=== PATIENT | male | born 1965 | race Caucasian/White ===

== ENCOUNTER → 2018-06-08 08:14 | Outpatient (CLI) | payer OTHER, SELFPAY ==
[2018-06-08 09:02] LABS: Appearance Urine UA CLEAR; Bilirubin Urine UA NEGATIVE (NEGATIVE); Color Urine UA YELLOW; Glucose Urine UA NEGATIVE (Normal); Ketones Urine UA NEGATIVE (NEGATIVE); Leukocyte Esterase Urine UA NEGATIVE (NEGATIVE); Nitrite Urine UA Negative (Negative); Occult Blood Urine UA NEGATIVE (Negative); Protein Urine UA NEGATIVE (Negative); Urobilinogen Urine UA 0.2 E.U./dL (0.2); pH Urine UA 5.5 (4.5-8.0)
[2018-06-08 09:11] LABS: Add Manual Diff / Slide Review NO; Basophils Percent Auto 1.1 % (0-2); Eosinophils Percent Auto 2.2 % (2-4); Hematocrit 44.2 % (41-53); Hemoglobin 15.8 g/dL (13.5-17.5); Lymphocytes Percent Auto 39.6 % (25-40); Mean Corpuscular HGB Conc 35.8 % (30-36); Mean Corpuscular Hemoglobin 34.3 PG (26-34); Monocytes Percent Auto 9.8 % (3-14); Neutrophils Absolute Auto 2600 /uL (3000-5900); Neutrophils Percent Auto 47.3 % (50-75); Platelet Count 118 X10^3/uL (150-400); Red Cell Distribution Width 12.5 % (11.6-14.8); White Blood Cell Count 5.4 X10^3/uL (4.5-11.0)
[2018-06-08 09:31] LABS: Alanine Aminotransferase 82 IU/L (21-72); Albumin 4.5 g/dL (3.5-5.0); Albumin Globulin Ratio 1.6 (1.0-2.8); Alkaline Phosphatase 78 U/L (38-126); Aspartate Aminotransferase 47 IU/L (17-59); BUN Creatinine Ratio 15.6 (6-22); Bilirubin Total 1.5 mg/dL (0.2-1.3); Blood Urea Nitrogen 14 mg/dL (9-20); Calcium 9.3 mg/dL (8.4-10.2); Carbon Dioxide 26 mmol/L (22-32); Chloride 107 mmol/L (98-107); Cholesterol 138 mg/dL (140-199); Estimated Glomerular Filt Rate > 60.0 mL/min (>60); Globulin 2.9 g/dL (1.7-4.1); Glucose 99 mg/dL (70-100); HDL Cholesterol 40 mg/dL (40-60); HEMOLYSIS < 15 (0-50); LDL Cholesterol Calculated 67 mg/dL (<100); Potassium 3.8 mmol/L (3.4-5.1); Sodium 145 mmol/L (137-145); Total Protein 7.4 g/dL (6.3-8.2); Triglycerides 153 mg/dL (35-150)
[2018-06-08 09:58] LABS: Prostate Specific Antigen Scrn 0.525 ng/mL (0.1-4.0)
[2018-06-08 10:18] LABS: Thyroid Stimulating Hormone 2.91 uIU/mL (0.47-4.68)
[2018-06-08 10:38] LABS: Hep C Virus Ab w/Reflex Quant NEGATIVE s/c (NEGATIVE)
== END ==
PROVIDERS: PCP Family Medicine; Visit Provider Family Medicine
DX: Z12.5 Encounter for screening for malignant neoplasm of prostate (principal); Z11.59 Encounter for screening for other viral diseases; Z13.220 Encounter for screening for lipoid disorders; Z51.81 Encounter for therapeutic drug level monitoring; Z13.29 Encounter for screening for other suspected endocrine disorder
CPT/HCPCS: 36415; 80053; 80061; 81003; 84443; 85025; 86803; G0103

== ENCOUNTER → 2018-06-27 13:38 | Outpatient (CLI) | payer OTHER, SELFPAY ==
[2018-06-30 08:45] LABS: Hepatitis A Antibody IgM NONREACTIVE (NONREACTIVE); Hepatitis Acute Panel Interp 0.03 (NONREACTIVE); Hepatitis B Core Antibody IgM NONREACTIVE (NONREACTIVE); Hepatitis B Surface Antigen NONREACTIVE (NONREACTIVE); Hepatitis C Antibody NONREACTIVE
== END ==
PROVIDERS: PCP Family Medicine; Visit Provider Family Medicine
DX: R74.8 Abnormal levels of other serum enzymes (principal)
CPT/HCPCS: 36415; 80074

== ENCOUNTER → 2018-06-28 07:56 | Outpatient (CLI) | payer OTHER, SELFPAY ==
--- NOTE | 2018-06-28 | DI.US.S_ITS ---
PROCEDURE: US ABDOMEN COMPLETE INDICATIONS: ELEVATED LIVER ENZYMES TECHNIQUE: Real-time scanning was performed of the abdominal and retroperitoneal organs, with image documentation. COMPARISON: None. FINDINGS: Liver: Liver is diffusely increased in echogenicity. No focal hepatic abnormalities identified. Normal hepatic size. Gallbladder: No gallstones identified. Normal gallbladder wall. No pericholecystic fluid. Negative sonographic Pfeiffer sign. Biliary ducts: Intrahepatic bile ducts are non-dilated. Extrahepatic bile duct caliber measures 5.2 mm. Normal is 6-7 mm or less in diameter, or 10 mm or less post-cholecystectomy. Pancreas: Not visualized Spleen: Spleen is normal in size and homogeneous in echotexture. Kidneys: Kidneys are normal in size and echotexture. Right kidney measures 11.2 cm long; left kidney measures 12.0 cm long. No hydronephrosis or nephrolithiasis. No solid masses. Aorta: Visualized aorta is normal in caliber at less than 3 cm. Iliacs: Proximal common iliac arteries are normal in caliber at less than 2.5 cm. IVC: Not well-seen. Miscellaneous: No free abdominal fluid. IMPRESSION: Increased hepatic echogenicity noted possibly related to hepatic steatosis but other sources of hepatocellular disease cannot be excluded. Recommend clinical correlation. Dictated by: Saeid Dean [facility] Interpreted: Nima Mathew MD on 06/28/2018 at 9:08 Approved by: Nima Mathew M.D. on 06/28/2018 at 10:36
== END ==
PROVIDERS: PCP Family Medicine; Visit Provider Family Medicine
DX: R74.8 Abnormal levels of other serum enzymes (principal)
CPT/HCPCS: 76700

== ENCOUNTER → 2019-05-31 16:58 | Outpatient (CLI) | payer OTHER, SELFPAY | PROVIDERS: PCP Family Medicine | DX: Z23 Encounter for immunization (principal) | CPT/HCPCS: 90471; 90686 ==

== ENCOUNTER → 2019-10-27 16:19 | Outpatient (ROUT) | payer OTHER, SELFPAY | PROVIDERS: PCP Family Medicine; Visit Provider Physician Assistant | DX: L03.90 Cellulitis, unspecified (principal) | CPT/HCPCS: 87070; 87075; 87205 ==

== ENCOUNTER → 2020-02-07 12:20 | Outpatient (CLI) | payer OTHER, SELFPAY ==
--- NOTE | 2020-02-07 12:23 | DI.RAD.S_ITS ---
PROCEDURE: XR WRIST LT MIN 3V INDICATIONS: left wrist injury, history of mult surgeries TECHNIQUE: 4 views of the wrist were acquired. COMPARISON: None. FINDINGS: Bones: No fractures or dislocations. No suspicious bony lesions. First CMC and triscaphe joint degeneration. Chronic appearing ossicles seen at the tip of the ulnar styloid presumably from prior remote fracture Soft tissues: No suspicious soft tissue calcifications. IMPRESSION: No fracture. If the patient's symptoms do not improve recommend followup radiographs in 10 days to assess for healing sclerosis/occult injury. Dictated by: Daniel Mckeon M.D. on 02/07/2020 at 13:50 Approved by: Daniel Mckeon M.D. on 02/07/2020 at 13:54
== END ==
PROVIDERS: Referring Provider Nurse Practitioner Family; Visit Provider Nurse Practitioner Family
DX: S69.92XA Unspecified injury of left wrist, hand and finger(s), initial encounter (principal); M18.12 Unilateral primary osteoarthritis of first carpometacarpal joint, left hand; X58.XXXA Exposure to other specified factors, initial encounter; Z98.890 Other specified postprocedural states
CPT/HCPCS: 73110

== ENCOUNTER → 2020-04-28 09:59 | Outpatient (CLI) | payer OTHER, SELFPAY ==
[2020-04-28 11:02] LABS: Add Manual Diff / Slide Review NO; Basophils Absolute Auto 100 /uL (0-100); Eosinophils Absolute Auto 100 /uL (0-450); Hematocrit 45.5 % (41-53); Hemoglobin 15.9 g/dL (13.5-17.5); Lymphocytes Absolute Auto 2400 /uL (1100-4500); Lymphocytes Percent Auto 42.6 % (25-40); Mean Corpuscular HGB Conc 34.8 % (30-36); Mean Corpuscular Hemoglobin 33.7 PG (26-34); Mean Corpuscular Volume 96.8 fL (80-100); Monocytes Absolute Auto 600 /uL (0-900); Monocytes Percent Auto 10.6 % (3-14); Neutrophils Absolute Auto 2500 /uL (1500-7000); Neutrophils Percent Auto 43.8 % (50-75); Platelet Count 121 X10^3/uL (150-400); Red Cell Distribution Width 12.6 % (11.6-14.8); White Blood Cell Count 5.7 X10^3/uL (4.5-11.0)
[2020-04-28 11:15] LABS: BUN Creatinine Ratio 15.7 (6-22); Blood Urea Nitrogen 14 mg/dL (9-20); Calcium 9.3 mg/dL (8.4-10.2); Carbon Dioxide 27 mmol/L (22-32); Chloride 107 mmol/L (98-107); Cholesterol 157 mg/dL (140-199); Estimated Glomerular Filt Rate > 60.0 mL/min (>60); Glucose 97 mg/dL (70-100); HDL Cholesterol 44 mg/dL (40-60); HEMOLYSIS < 15 (0-50); LDL Cholesterol Calculated 84 mg/dL (<100); Potassium 4.3 mmol/L (3.4-5.1); Sodium 140 mmol/L (137-145); Triglycerides 145 mg/dL (35-150)
[2020-04-28 11:44] LABS: Prostate Specific Antigen Scrn 0.587 ng/mL (0.1-4.0)
== END ==
PROVIDERS: PCP Family Medicine; Referring Provider Family Medicine; Visit Provider Family Medicine
DX: Z12.5 Encounter for screening for malignant neoplasm of prostate (principal); Z68.35 Body mass index [BMI] 35.0-35.9, adult
CPT/HCPCS: 36415; 80048; 80061; 85025; G0103

== ENCOUNTER → 2020-10-02 09:00 | Outpatient (CLI) | payer OTHER, SELFPAY ==
[2020-10-02 10:18] LABS: COVID19 -Nasal RAPID Negative (Negative)
== END ==
PROVIDERS: PCP Family Medicine; Visit Provider Surgery
DX: Z01.812 Encounter for preprocedural laboratory examination (principal); Z20.822 Contact with and (suspected) exposure to COVID-19
CPT/HCPCS: 87635; C9803

== ENCOUNTER 2020-10-03 07:24 | Day surgery (SDC) | payer OTHER, SELFPAY ==
--- NOTE | 2020-10-03 | PATH_ITS ---
[facility] Accession Number: [id number] . 01 Material submitted: . PART A: colon - ASCENDING COLON POLYP AT 110CM PART B: body - POLYP AT 45CM PART C: rectum - RECTAL POLYP AT 5CM . 02 Diagnosis: A. Ascending Colon, Polyp at 110 cm, Biopsy: Tubular adenoma. . B. Colon, Polyp at 45 cm, Biopsy: Tubular adenoma. . C. Rectum, Polyp at 5 cm, Biopsy: Hyperplastic polyp. MRV 10/08/2020 1152 Local . 02 Electronically signed: . Shruthi Keys MD, Pathologist NPI- [id number] . 01 Gross description: . Part A: ASCENDING COLON POLYP AT 110CM: Received in formalin are 2 fragment(s) of schmitt, soft tissue measuring 0.1 x 0.1 x 0.1 cm to 0.2 x 0.1 x 0.1 cm submitted entirely in 1 cassette(s) Part B: POLYP AT 45CM: Received in formalin is 1 fragment(s) of schmitt, soft tissue measuring 0.3 x 0.2 x 0.2 cm submitted entirely in 1 cassette(s) Part C: RECTAL POLYP AT 5CM: Received in formalin is 1 fragment(s) of schmitt, soft tissue measuring 0.3 x 0.3 x 0.3 cm submitted entirely in 1 cassette(s) /CHIDI 10/06/2020 1915 Local . 02 Pathologist provided ICD-10: D12.2, D12.6 . 02 CPT . 568047, 873922, [id number] Performed at: [address], [place], [place] [id number] MD Viktor Tuttle MD Phone: [phone] Performed at: 02 [facility] [place] [address] [place] [id number] MD Shruthi Keys MD Phone: [phone]
[2020-10-03] MEDS: SODIUM CHLORIDE 0.9% 1,000 ML 200 ML IV (07:47)
[2020-10-03 07:50] VITALS: BP 136/80; PULSE 64; RESP 16; TEMP 36.2; O2SAT 96; BMI 35.7
--- NOTE | 2020-10-03 08:24 | P.HP_ITS ---
History of Present Illness History of Present Illness Date Patient Seen: 10/03/20 Time Patient Seen: 08:24 [place] [facility] [place]: This is a 54-year-old man who is here for his 2nd ever colonoscopy. His 1st exam 3 years ago was done at [facility], and 2 polyps were found. He was recommended to have a repeat colonoscopy in 3 years. He denies any new symptoms of blood in the stool, melena, unexplained weight loss, unexplained abdominal pain. He denies any family history of colon polyps or colon cancers. He says he is otherwise healthy, denies any heart lung or kidney problems. ROS: Denies any cold symptoms. Thirteen system review is otherwise negative other than as mentioned below and in HPI. PE: GENERAL: Well groomed and cooperative. Appears stated age. Answers questions promptly and appropriately. Vital signs noted. HENT: Normocephalic, atraumatic. Hearing intact. EYES: Conjunctiva pink, sclera white, no periorbital swelling. CARDIOVASCULAR: Regular rate. No pedal edema. RESPIRATORY: Non-tachypneic, breathing comfortably on room air. GASTROINTESTINAL: Abdomen soft and non-distended GENITALURINARY: No flank tenderness. MUSCULOSKELETAL: Equal tone and mass bilaterally. SKIN: Warm, dry, soft, appropriate color for ethnicity. No other lesions, rashes, or wounds. NEURO: Alert and Oriented X 3. No gross sensory deficits, or cognitive issues. PSYCH: Appropriate affect and mood. 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 Grandmother No problems noted. Grandmother Cancer Mother No problems noted. Social History: household members spouse,children Tobacco & Substance use: Tobacco type cigarettes Smoking Status Current every day smoker alcohol intake current alcohol intake frequency 0-2 drinks per day Substance Use Type marijuana Meds Home Medications and Allergies Home Medications Medication Instructions Recorded Confirmed Type ibuprofen [Advil] 200 mg PO Q DAY PRN #0 02/19/11 10/03/20 History multivitamin 1 tab PO DAILY 10/03/20 10/03/20 History psyllium husk [Metamucil] 1.2 - 2.4 g PO DAILY 10/03/20 10/03/20 History Allergies Allergy/AdvReac Type Severity Reaction Status Date / Time codeine [CODEINE] Allergy Unknown Vomiting Verified 10/03/20 07:40 Exam Vital Signs (past 8 hours): - 10/03/20 07:50 Temperature 97.2 F L Pulse Rate 64 Respiratory Rate 16 Blood Pressure 136/80 Pulse Oximetry 96 Oxygen Delivery Method Room Air Assessment & Plan Assessment and plan (1) Personal history of colonic polyps: Status: Acute (2) BMI 35.0-35.9,adult: Status: Acute Assessment & Plan narrative: Risks and benefits of surveillance colonoscopy and possible polypectomy were discussed with the patient including risk of bleeding, perforation, need for additional procedures, risks of anesthesia. The patient desires to proceed with the colonoscopy procedure. COVID-19 COVID-19 status: Negative Result date/Date tested (Pos, Neg/Pending): 10/03/20 Time Spent With Patient Time with patient: 15-24 minutes Quality VTE Deep Vein Thrombosis/Pulmonary Embolism Present on Admission: No
--- NOTE | 2020-10-03 08:26 | P.OP.ENDO_ITS ---
Operative Date/Time/Diagnoses Date of procedure: 10/03/20 Time of procedure: 08:26 Pre-op diagnosis: Personal history of colon polyps Procedure & Clinicians Study performed: Colonoscopy Procedural sedation performed by the endoscopist Polypectomy x3 with Jumbo forceps Same procedure as scheduled: Yes Indications: Personal history of colon polyps, due for surveillance Surgeon: Macarena Warner Procedure Notes SCOAP/Timeout: Performed Procedure in detail: The patient was brought to the room and placed in left lateral decubitus position with all bony prominences padded. A time-out was performed and then the patient was given procedural sedation starting with 6 mg of Versed and 100 mcg of fentanyl. Vitals were monitored throughout the procedure and remained stable. Once adequately sedated, the procedure was begun. A rectal exam was performed revealing no abnormalities. The colonoscope was then introduced to the rectum and advanced to the cecum in the usual fashion.]The cecum was identified by the appendiceal orifice, the mucosal tri-f old, and the ileocecal valve. The scope was then retracted while rotating side to side and examining each mucosal fold. Three polyps were found less than 1 cm, an adenomatous appearing. Each was removed with Jumbo forceps. One was found at 110 cm in the ascending colon, 1 was found at 45 cm, and 1 was found at 5 cm in the rectum. They were [ At the conclusion of the procedure retroflexion was performed andsmall grade 1-2 internal hemorrhoids without stigmata of bleeding were seen]. The scope was then withdrawn from the rectum the procedure was concluded. The patient tolerated the procedure well and was transferred to the PACU in stable condition. Scope withdrawal time: 11 Sedation minutes: 19 Findings: polyp (Three polyps) Specimen(s): other (Three polyps) Complications: none Post-procedure Recommendations: Colonscopy in 3 years (Due to 3 new polyps since prior colonoscopy) Plan for aftercare: Will send biopsy results in the mail Follow up: as needed Disposition: PACU
[2020-10-03] MEDS: fentaNYL 250 MCG/5 ML INJ IV (08:31)
[2020-10-03] MEDS: MIDAZOLAM 5 MG/5 ML VIAL IV (08:31)
[2020-10-03 08:53] VITALS: BP 121/74; PULSE 76; RESP 12; TEMP 36.4; O2SAT 96
[2020-10-03 08:58] VITALS: BP 121/84; PULSE 67; RESP 12; O2SAT 95
[2020-10-03 09:03] VITALS: BP 115/82; PULSE 68; RESP 15; TEMP 36.9; O2SAT 94
[2020-10-03 09:20] VITALS: BP 127/73; PULSE 77; RESP 16; TEMP 36.7; O2SAT 95
== END 2020-10-03 09:28 | disposition home or self-care (01) ==
PROVIDERS: PCP Family Medicine; Referring Provider Family Medicine; Visit Provider Surgery
PROC: 0DJD8ZZ Inspection of Lower Intestinal Tract, Via Natural or Artificial Opening Endoscopic (ICD-10-PCS; CPT 45378; principal; 2020-10-03 08:30)
DX: Z12.11 Encounter for screening for malignant neoplasm of colon (principal); Z86.010 Personal history of colon polyps; F17.210 Nicotine dependence, cigarettes, uncomplicated; D12.2 Benign neoplasm of ascending colon; D12.6 Benign neoplasm of colon, unspecified
CPT/HCPCS: 45380; 99152; J2250; J3010

== ENCOUNTER → 2021-01-23 07:54 | Outpatient (CLI) | payer OTHER, SELFPAY ==
[2021-01-23 08:35] LABS: Add Manual Diff / Slide Review NO; Basophils Absolute Auto 100 /uL (0-100); Basophils Percent Auto 1.1 % (0-2); Eosinophils Absolute Auto 100 /uL (0-450); Eosinophils Percent Auto 1.7 % (2-4); Hematocrit 43.7 % (41-53); Hemoglobin 15.5 g/dL (13.5-17.5); Lymphocytes Absolute Auto 2300 /uL (1100-4500); Lymphocytes Percent Auto 38.5 % (25-40); Mean Corpuscular HGB Conc 35.5 % (30-36); Mean Corpuscular Hemoglobin 34.1 PG (26-34); Mean Corpuscular Volume 95.9 fL (80-100); Monocytes Absolute Auto 600 /uL (0-900); Monocytes Percent Auto 10.8 % (3-14); Neutrophils Absolute Auto 2800 /uL (1500-7000); Neutrophils Percent Auto 47.9 % (50-75); Platelet Count 122 X10^3/uL (150-400); Red Blood Cell Count 4.56 X10^6/uL (4.5-5.9); Red Cell Distribution Width 12.5 % (11.6-14.8); White Blood Cell Count 5.9 X10^3/uL (4.5-11.0)
[2021-01-23 08:40] LABS: Hemoglobin A1C% w Est Avg Glu 5.2 % (4.0-6.0)
[2021-01-23 09:05] LABS: Alanine Aminotransferase 75 IU/L (<50); Albumin 4.3 g/dL (3.5-5.0); Albumin Globulin Ratio 1.7 (1.0-2.8); Alkaline Phosphatase 124 U/L (38-126); Aspartate Aminotransferase 60 IU/L (17-59); BUN Creatinine Ratio 16.5 (6-22); Bilirubin Total 0.6 mg/dL (0.2-1.3); Blood Urea Nitrogen 14 mg/dL (9-20); Calcium 9.3 mg/dL (8.4-10.2); Carbon Dioxide 23 mmol/L (22-32); Chloride 111 mmol/L (98-107); Cholesterol 131 mg/dL (140-199); Estimated Glomerular Filt Rate > 60.0 mL/min (>60); Globulin 2.6 g/dL (1.7-4.1); Glucose 92 mg/dL (70-100); HDL Cholesterol 41 mg/dL (40-60); HEMOLYSIS < 15 (0-50); LDL Cholesterol Calculated 58 mg/dL (<100); Potassium 4.1 mmol/L (3.4-5.1); Sodium 142 mmol/L (137-145); Total Protein 6.9 g/dL (6.3-8.2); Triglycerides 158 mg/dL (35-150)
[2021-01-23 09:13] LABS: Free T3, Triiodothyronine Free 4.14 pg/mL (2.77-5.27); Free T4, Direct Thyroxine 1.16 ng/dL (0.78-2.19)
[2021-01-23 09:26] LABS: Thyroid Stimulating Hormone 2.87 uIU/mL (0.47-4.68)
[2021-01-23 09:32] LABS: Prostate Specific Antigen Scrn 0.551 ng/mL (0.1-4.0)
[2021-01-23 09:51] LABS: Vitamin B12 543 pg/mL (239-931)
== END ==
PROVIDERS: PCP Family Medicine; Referring Provider Family Medicine; Visit Provider Family Medicine
DX: L03.90 Cellulitis, unspecified (principal); Z12.5 Encounter for screening for malignant neoplasm of prostate; Z13.21 Encounter for screening for nutritional disorder; Z56.6 Other physical and mental strain related to work; Z68.35 Body mass index [BMI] 35.0-35.9, adult
CPT/HCPCS: 36415; 80053; 80061; 82306; 82607; 83036; 84439; 84443; 84481; 85025; G0103

== ENCOUNTER → 2023-09-14 16:30 | Outpatient (CLI) | payer OTHER, SELFPAY ==
--- NOTE | 2023-09-14 16:31 | DI.RAD.S_ITS ---
PROCEDURE: XR KNEE LT 3V INDICATIONS: Left knee pain TECHNIQUE: 3 views of the knee were acquired. COMPARISON: None. FINDINGS: Bones: No fractures or dislocations. No suspicious bony lesions. Soft tissues: No joint effusion. No suspicious soft tissue calcifications. IMPRESSION: No acute bony abnormality or significant effusion. Approved by: Skyler Kim M.D. on 09/14/2023 at 18:26
== END ==
LOC: RAD 16:31
PROVIDERS: PCP Family Medicine; Referring Provider Nurse Practitioner Family; Visit Provider Nurse Practitioner Family
DX: S86.912A Strain of unspecified muscle(s) and tendon(s) at lower leg level, left leg, initial encounter (principal); X58.XXXA Exposure to other specified factors, initial encounter
CPT/HCPCS: 73562

== ENCOUNTER → 2024-03-09 07:51 | Outpatient (CLI) | payer OTHER, SELFPAY ==
[2024-03-09 08:19] LABS: Add Manual Diff / Slide Review NO; Basophils Absolute Auto 0 /uL (0-100); Basophils Percent Auto 0.7 % (0-2); Eosinophils Absolute Auto 100 /uL (0-450); Eosinophils Percent Auto 1.7 % (2-4); Hemoglobin 15.4 g/dL (13.5-17.5); Lymphocytes Absolute Auto 2400 /uL (1100-4500); Lymphocytes Percent Auto 42.2 % (25-40); Mean Corpuscular HGB Conc 35.8 % (30-36); Mean Corpuscular Hemoglobin 34.2 PG (26-34); Mean Corpuscular Volume 95.5 fL (80-100); Monocytes Absolute Auto 600 /uL (0-900); Monocytes Percent Auto 10.7 % (3-14); Neutrophils Absolute Auto 2500 /uL (1500-7000); Neutrophils Percent Auto 44.7 % (50-75); Platelet Count 120 X10^3/uL (150-400); Red Cell Distribution Width 12.5 % (11.6-14.8); White Blood Cell Count 5.6 X10^3/uL (4.5-11.0)
[2024-03-09 08:42] LABS: HEMOLYSIS 19 (0-50)
[2024-03-09 08:49] LABS: Alanine Aminotransferase 81 IU/L (<50); Albumin 4.3 g/dL (3.5-5.0); Albumin Globulin Ratio 1.7 (1.0-2.8); Alkaline Phosphatase 108 U/L (38-126); Aspartate Aminotransferase 52 IU/L (17-59); BUN Creatinine Ratio 15.7 (6-22); Bilirubin Total 0.8 mg/dL (0.2-1.3); Blood Urea Nitrogen 14 mg/dL (9-20); Calcium 8.8 mg/dL (8.4-10.2); Carbon Dioxide 26 mmol/L (22-32); Chloride 112 mmol/L (98-107); Cholesterol 115 mg/dL (140-199); Estimated Glomerular Filt Rate > 60 mL/min (>60); Globulin 2.6 g/dL (1.7-4.1); Glucose 99 mg/dL (70-100); HDL Cholesterol 42 mg/dL (40-60); LDL Cholesterol Calculated 52 mg/dL (<100); Potassium 4.1 mmol/L (3.4-5.1); Sodium 143 mmol/L (137-145); Total Protein 6.9 g/dL (6.3-8.2); Triglycerides 107 mg/dL (35-150)
[2024-03-09 08:54] LABS: Vitamin D 25 Hydroxy (D3) 30.5 ng/mL (30.0-100.0)
[2024-03-09 09:04] LABS: TSH w/ Reflex to FT4 3.08 uIU/mL (0.47-4.68)
[2024-03-09 09:09] LABS: HEMOLYSIS 19 (0-50)
[2024-03-09 09:23] LABS: Total Iron Binding Capacity 321 ug/dL (261-462)
[2024-03-09 09:55] LABS: Prostate Specific Antigen Scrn 0.868 ng/mL (0.1-4.0)
[2024-03-09 10:14] LABS: Vitamin B12 523 pg/mL (239-931)
== END ==
PROVIDERS: PCP Family Medicine; Referring Provider Family Medicine; Visit Provider Family Medicine
DX: Z13.21 Encounter for screening for nutritional disorder (principal); Z13.220 Encounter for screening for lipoid disorders; Z12.5 Encounter for screening for malignant neoplasm of prostate; R71.8 Other abnormality of red blood cells
CPT/HCPCS: 36415; 80053; 80061; 82306; 82607; 83540; 83550; 84443; 85025; G0103

== ENCOUNTER 2024-06-26 06:39 | Day surgery (SDC) | payer OTHER, SELFPAY ==
[2024-06-26 07:16] VITALS: BP 149/86; PULSE 64; RESP 17; TEMP 36.1; O2SAT 96
--- NOTE | 2024-06-26 07:39 | PM.HP.1 ---
History of Present Illness History of Present Illness Date Patient Seen: 06/26/24 Time Patient Seen: 07:39 [place] [facility] [place]: 58-year-old male personal history of colonic polyps here for screening colonoscopy. Last colonoscopy approximately 5 years ago. No family history of colon cancer. No abdominal concerns today. [facility] Medical History (Updated 03/19/24 @ 11:57 by Roosevelt Poe DO) Transaminitis Hepatic steatosis Elevated hematocrit Somatic dysfunction of lower extremity Plantar fasciitis of left foot Chronic pain of left knee Physical exam, annual Onychomycosis Ganglion cyst of dorsum of left wrist Screening for prostate cancer BMI 35.0-35.9,adult Stress at work Colon polyps Bilateral tinnitus Dizziness Left wrist injury Cellulitis Folliculitis Chickenpox (1981) Chronic back pain (~1979) Foot pain (~2011) Surgical History History of surgery on left wrist Hx of surgical procedure (1978) Hx of thumb surgery (2006) Hx of hernia repair (2010) History of tonsillectomy (1969) Family History Father 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 Grandmother No problems noted. Grandmother Cancer Mother No problems noted. Social History household members: spouse and children Smoking Status: Current every day smoker Tobacco: How many years used: 20 quit status: not considering quitting alcohol intake: current substance use type: does not use Meds Home Medications and Allergies Home Medications Medication Instructions Recorded Confirmed Type ibuprofen 200 mg tablet (Advil) 200 mg PO Q DAY PRN ##0 02/19/11 06/26/24 History multivitamin 1 tab PO DAILY 10/03/20 06/26/24 History psyllium husk 0.4 gram capsule 1.2 - 2.4 g PO DAILY 10/03/20 06/26/24 History (Metamucil) Allergies Allergy/AdvReac Type Severity Reaction Status Date / Time codeine [CODEINE] Allergy Unknown Vomiting Verified 03/08/24 10:07 Exam Vital Signs (past 8 hours): - 06/26/24 07:16 Temperature 96.9 F L Pulse Rate 64 Respiratory Rate 17 Blood Pressure 149/86 H Pulse Oximetry 96 Oxygen Delivery Method Room Air Oxygen Delivery Method Room Air Narrative Exam Narrative: General adult man alert oriented no acute distress Chest nonlabored respiration Extremities warm well perfused Assessment & Plan Assessment and plan (1) Colon polyps: Qualifiers: Colon polyp type: unspecified Colon location: unspecified part of colon Qualified Code(s): K63.5 - Polyp of colon Status: Acute Assessment & Plan narrative: The patient requires colorectal screening and colonoscopy is recommended. Technical details were discussed. Risks, benefits, alternatives explained. Risks including but not limited to myocardial infarction, aspiration, bleeding, pain, missed lesion, incomplete examination, need for further radiographic studies, intestinal injury, and need for major abdominal surgery were discussed. All questions were answered to their satisfaction, and they are in agreement with this plan. Time-Based Coding :: [TOTAL MINUTES] spent with patient and on the chart (including review of chart, obtaining history, exam, reviewing outside data, placing orders, documenting exam and treatment plan, and counseling patient) on [DATE].
[2024-06-26 08:00] VITALS: BP 125/76; PULSE 80; RESP 16; TEMP 36.2; O2SAT 95
--- NOTE | 2024-06-26 08:04 | P.OP.COLON_ITS ---
Operative Date/Time/Diagnoses Date of procedure: 06/26/24 Time of procedure: 08:04 Pre-op diagnosis: Personal history of colonic polyps Procedure & Clinicians Study performed: Screening colonoscopy Same procedure as scheduled: Yes Indications: Colorectal screening Surgeon: Mir Squires Procedure Notes Procedure in detail: The history and physical was performed/updated and the patient is ASA class is 2. The procedure was discussed in detail with the patient. Potential risks complications including infection, bleeding, missed diagnosis, perforation, need for surgery, and were explained. Their questions were answered and informed consent was obtained. Patient was brought to the procedure room and placed standard monitoring equipment. The patient's vital signs were monitored continuously throughout the entire procedure. Prior to starting time-out was performed. The patient was placed in the left lateral recumbent position. Procedural sedation was administered by anesthesia. Examination began with a thorough inspection of the perianal area there was no evidence of fissures, fistulae, external hemorrhoids or cutaneous malignancy. The colonoscopy scope was then placed into the anal canal and was advanced to the cecum, which was identified by the ileocecal valve, the appendiceal orifice and the confluence of the taenia. The scope was then slowly withdrawn examining colon thoroughly in all directions, irrigating it of any residual stool. The scope was retroflexed within the rectum The patient tolerated the procedure well. They will be discharged once criteria are met. The prep was of good/excellent quality. The withdrawl time was 7 minutes. FINDINGS * Unremarkable colonoscopy. Normal healthy colonic mucosa without mass or polyps. * Internal hemorrhoids Specimen(s): none sent Impression: Normal colonoscopy Post-procedure Recommendations: Colonoscopy in 10 years Disposition: same day surgery
[2024-06-26 08:05] VITALS: BP 119/65; PULSE 74; RESP 16; O2SAT 93
[2024-06-26 08:10] VITALS: BP 113/73; PULSE 88; RESP 17; O2SAT 93
[2024-06-26 08:15] VITALS: BP 105/71; PULSE 73; RESP 17; O2SAT 94
[2024-06-26 08:20] VITALS: BP 118/78; PULSE 72; RESP 14; TEMP 36.3; O2SAT 94
== END 2024-06-26 08:33 | disposition home or self-care (01) ==
PROVIDERS: PCP Family Medicine; Referring Provider Surgery; Visit Provider Surgery
PROC: 0DJD8ZZ Inspection of Lower Intestinal Tract, Via Natural or Artificial Opening Endoscopic (ICD-10-PCS; CPT 45378; principal; 2024-06-26 07:45)
DX: Z12.11 Encounter for screening for malignant neoplasm of colon (principal); Z86.0100 Personal history of colon polyps, unspecified; K64.8 Other hemorrhoids
CPT/HCPCS: 45378; J2704

== ENCOUNTER → 2025-03-14 07:19 | Outpatient (CLI) | payer OTHER, SELFPAY ==
[2025-03-14 08:42] LABS: Add Manual Diff / Slide Review NO; Hematocrit 44.6 % (41-53); Hemoglobin 15.7 g/dL (13.5-17.5); Lymphocytes Absolute Auto 2500 /uL (1100-4500); Mean Corpuscular HGB Conc 35.2 % (30-36); Mean Corpuscular Hemoglobin 34.1 PG (26-34); Mean Corpuscular Volume 96.7 fL (80-100); Platelet Count 130 X10^3/uL (150-400)
[2025-03-14 08:52] LABS: Alanine Aminotransferase 70 IU/L (<50); Albumin 4.6 g/dL (3.5-5.0); Albumin Globulin Ratio 1.9 (1.0-2.8); Alkaline Phosphatase 79 U/L (38-126); Blood Urea Nitrogen 16 mg/dL (9-20); Calcium 9.2 mg/dL (8.4-10.2); Carbon Dioxide 24 mmol/L (22-32); Chloride 107 mmol/L (98-107); Cholesterol 124 mg/dL (140-199); Estimated Glomerular Filt Rate > 60 mL/min (>60); Globulin 2.4 g/dL (1.7-4.1); Glucose 99 mg/dL (70-99); HDL Cholesterol 39 mg/dL (40-60); HEMOLYSIS < 15 (0-50); Potassium 3.9 mmol/L (3.4-5.1); Sodium 140 mmol/L (137-145); Total Protein 7.0 g/dL (6.3-8.2); Triglycerides 155 mg/dL (35-150)
[2025-03-14 09:11] LABS: Vitamin D 25 Hydroxy (D3) 24.7 ng/mL (30.0-100.0)
[2025-03-14 09:40] LABS: Vitamin B12 465 pg/mL (239-931)
== END ==
PROVIDERS: PCP Family Medicine; Referring Provider Family Medicine; Visit Provider Family Medicine
DX: Z13.220 Encounter for screening for lipoid disorders (principal); Z12.5 Encounter for screening for malignant neoplasm of prostate; Z13.21 Encounter for screening for nutritional disorder; K76.0 Fatty (change of) liver, not elsewhere classified; R74.01 Elevation of levels of liver transaminase levels; Z68.35 Body mass index [BMI] 35.0-35.9, adult
CPT/HCPCS: 36415; 80053; 80061; 82306; 82607; 85025; G0103